=== PATIENT | male | born 1945 | race Caucasian/White ===

== ENCOUNTER 2025-02-19 09:34 | Day surgery (SDC) | payer OTHER, BC ==
[2025-02-13 14:47] VITALS: BMI 31.0
[2025-02-19 12:03] VITALS: PULSE 62; TEMP 98
[2025-02-19 12:06] VITALS: BP 102/51; RESP 18
== END 2025-02-19 12:07 | disposition home or self-care (01) ==
LOC: FASU-ENDO 09:34
PROVIDERS: ATTEND Internal Medicine Gastroenterology
PROC: 0DBL8ZX Excision of Transverse Colon, Via Natural or Artificial Opening Endoscopic, Diagnostic (ICD-10-PCS; 2025-02-19)
PROC: 0DBL8ZX Excision of Transverse Colon, Via Natural or Artificial Opening Endoscopic, Diagnostic (ICD-10-PCS; principal; 2025-02-19 11:15)
DX: Z12.11 Encounter for screening for malignant neoplasm of colon (principal); D12.3 Benign neoplasm of transverse colon; K64.1 Second degree hemorrhoids; K64.8 Other hemorrhoids
CPT/HCPCS: 88305-TC